=== PATIENT | male | born 2000 | race African-American/Black ===

== ENCOUNTER 2024-04-15 21:59 | Emergency (ER) | payer OTHER ==
[2024-04-15] MEDS ORDERED: ONDANSETRON 4 MG/2 ML VIAL ONE (22:37)
[2024-04-15] MEDS ORDERED: KETOROLAC 30 MG/ML INJ ONE (22:37)
[2024-04-15] MEDS ORDERED: FAMOTIDINE 20 MG/2 ML VIAL IV ONE (22:38)
[2024-04-15] MEDS ORDERED: MORPHINE 4 MG/ML SYR ONE (22:38)
[2024-04-15] MEDS ORDERED: NA CHLORIDE 0.9% 1,000 ML ONE (22:38)
[2024-04-15 22:54] LABS: Absolute Eosinophils 0.1 K/uL (0-0.5); Absolute Lymphocytes (CBC) 1.9 K/uL (0.7-4.9); Absolute Monocytes 0.5 K/uL (0.1-1.3); Absolute Neutrophil 2.3 K/uL (1.8-8.0); Basophils % 0.7 % (0-1.3); Eosinophils % 2.6 % (0-4.4); Hematocrit 46.7 % (39.6-49.0); Hemoglobin 15.8 g/dL (13.6-17.9); Lymphocytes % 39.2 % (15.3-44.8); MCH 31.3 pg (27.0-35.0); MCHC 33.9 g/dL (32.0-36.0); MCV 92.2 fL (80-100); MPV 8.6 fL (7.6-11.3); Monocytes % 9.7 % (3.3-12.3); Neutrophils % 47.8 % (41.7-73.7); Nucleated Red Blood Cells % 0.5 % (0-0); Platelets 216 thou/uL (152-406); RBC Red Blood Cell Count 5.06 M/uL (4.33-5.43); Red Cell Distribution Width 14.2 % (12.1-15.2)
[2024-04-15 22:56] LABS: Albumin 3.6 g/dL (3.4-5.0); Albumin/Globulin Ratio 0.9 (1.1-1.8); Anion Gap 8.7 mEq/L (5.0-15.0); Bilirubin Total 0.4 mg/dL (0.2-1.0); Globulin 3.8 g/dL (2.3-3.5); Potassium 3.7 mEq/L (3.5-5.1); Protein, Total 7.4 g/dL (6.4-8.2)
[2024-04-15 23:41] LABS: Specific Gravity 1.017 (1.005-1.030); Sqamous Epithelial None Seen /HPF (None Seen); Urine Bacteria <20 /HPF (<20); Urine Bilirubin NEGATIVE (Negative); Urine Blood Negative (Negative); Urine Clarity Clear (Clear); Urine Color Light-Yellow (Yellow); Urine Culture Reflex Order NOT NEEDED; Urine Glucose NEGATIVE (Negative); Urine Ketones NEGATIVE (Negative); Urine Microscopic Reflex YN ORDER UMIC; Urine Nitrite NEGATIVE (Negative); Urine Protein NEGATIVE (Negative); Urine RBC None Seen /HPF (None Seen); Urine Sperm Present (None Seen); Urine Urobilinogen Normal (Normal); Urine WBC <5 /HPF (<5)
--- NOTE | 2024-04-16 00:48 | RAD REPORT ---
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 COMPARISON: None. TECHNIQUE: CT of the abdomen and pelvis acquired following the intravenous administration of contrast . Axial, coronal and sagittal images are provided. The study was performed using dose reduction techniques including automated exposure control and/or adjustment of the MA and/or KV according to pa tient size, and/or iterative reconstruction techniques. FINDINGS: Lower thorax: No consolidation or pleural effusion. Partially visualized heart is normal in size. Liver: Diffuse hepatic hypoattenuation, most suggestive of diffuse steatosis. Right lobe of the liver measures 19 cm in CC dimension. Biliary tree: No intra- or extrahepatic bile duct dilation. Gallbladder: No calcified cholelithiasis or pericholecystic inflammation. Pancreas, spleen, adrenals, kidneys and ureters: No acute lesion. No nephrolithiasis or hydronephro sis. Bladder/reproductive organs: No urinary bladder or prostate gland lesion. Gastrointestinal tract: Lower esophagus/stomach/small bowel/colon: Stomach and portions of the small bowel, rectum, and colon are decompressed, with associated mural prominence, limiting evaluation, with nonspecific mild mural thickening which can be seen with inadequate distention. Intrinsic mural pathology not entirely excluded. No inflammation or obstruction. Small amount of fluid within the stomach. Moderate colonic stool. Appendix: Normal diameter gas-filled appendix. Peritoneum, mesentery and retroperitoneum: No free air, ascites or loculated fluid. Lymph nodes: No pathologic adenopathy based on size criteria. Vasculature: Aorta and branches: Aorta has a normal diameter. IVC and veins: IVC has a normal diameter. Subcentimeter calcified pelvic phleboliths. Bones: Degenerative changes, including multilevel spondylosis. Soft tissues: No acute abnormality. IMPRESSION: 1. Moderate colonic stool. 2. Normal appendix. No inflammation. Electronically signed by: Yomi Chew MD 04/16/2024 12:31 AM IMPREGNATOR AND DRIER HELPER RP Due to temporary technical issues with the PACS/Tirag[employer] reporting system, reports are being juanita d by the in-house radiologist without review as a courtesy to ensure prompt reporting the interpreting radiologist is fully responsible for the content of the report. Transcribed Date/Time: 04/16/2024 12:48 AM
--- NOTE | 2024-04-16 04:42 | EDPHYS ---
Physician Documentation [facility] Name: Rodney Elijah Age: 23 yrs Sex: Male : 2000 Arrival Date: 04/15/2024 Time: 21:59 Bed 20 Private MD: ED Physician Santiago Koehler HPI: 04/15 22:10 This 23 yrs old Black Male presents to ER via Unassigned with complaints of Upper sp4 abdominal pain . 04/16 21:59 Patient presents with EMS for complaint of acute upper abdominal pain associated with sp4 nausea vomiting and diarrhea. Patient reports he was not able to sleep secondary to pain.. Historical: - Allergies: 04/15 22:16 No Known Allergies; rg5 - PMHx: 22:16 None; rg5 - Immunization history:: Adult Immunizations not up to date. - Infectious Disease History:: Denies. - Social history:: Smoking status: Patient reports the use of cigarette tobacco products, smokes one-half pack cigarettes per day. - Family history:: not pertinent. ROS: 04/16 21:59 Constitutional: Negative for fever, chills, and weight loss, positive for abdominal sp4 pain , positive for nausea vomiting and diarrhea Eyes: Negative for injury, pain, redness, and discharge, All other systems are negative, Exam: 21:59 Constitutional: This is a well developed, well nourished patient who is awake, alert, sp4 and in no acute distress. Head/Face: Normocephalic, atraumatic. Eyes: Pupils equal round and reactive to light, extra-ocular motions intact. Lids and lashes normal. Conjunctiva and sclera are not injected. Cornea within normal limits. Periorbital areas with no swelling, redness, or edema. ENT: Nares patent. No nasal discharge, no septal abnormalities noted. Tympanic membranes are normal and external auditory canals are clear. Oropharynx with no redness, swelling, or masses, exudates, or evidence of obstruction, uvula midline. Mucous membranes moist. Neck: Trachea midline, no thyromegaly or masses palpated, and no cervical lymphadenopathy. Supple, full range of motion without nuchal rigidity, or vertebral point tenderness. Chest/axilla: Normal chest wall appearance and motion. Nontender with no deformity. No lesions are appreciated. Cardiovascular: Regular rate and rhythm with a normal S1 and S2. No gallops, murmurs, or rubs. Normal PMI, no JVD. No pulse deficits. Respiratory: Lungs have equal breath sounds bilaterally, clear to auscultation and percussion. No rales, rhonchi or wheezes noted. No increased work of breathing, no retractions or nasal flaring. Abdomen/GI: Soft, with normal bowel sounds. No distension or tympany. No guarding or rebound. Positive for upper abdominal tenderness. Back: No spinal tenderness. No costovertebral tenderness. Skin: Warm, dry with normal turgor. Normal color with no rashes, no lesions, and no evidence of cellulitis. MS/ Extremity: Pulses equal, no cyanosis. Neurovascular intact. Full, normal range of motion. Neuro: Awake and alert, GCS 15, oriented to person, place, time, and situation. Cranial nerves II-XII grossly intact. Motor strength 5/5 in all extremities. Sensory grossly intact. Psych: Awake, alert, with orientation to person, place and time. Behavior, mood, and affect are within normal limits Vital Signs: 04/15 22:13 BP 117 / 86; Pulse 75; Resp 17; Temp 98.2; Pulse Ox 100% on R/A; Weight 52.16 kg; rg5 Height 5 ft. 3 in. ; Pain 8/10; 22:17 BP 117 / 86; Pulse 75; Resp 17; Pain 8/10; rg5 23:12 BP 127 / 85; Pulse 89; Resp 17; Pulse Ox 99% on R/A; Pain 5/10; rg5 04/16 00:33 BP 99 / 58; Pulse 83; Resp 16; Temp 98(O); Pulse Ox 99% on R/A; Pain 3/10; rg5 01:29 BP 109 / 91; Pulse 87; Resp 17; Temp 98; Pulse Ox 96% on R/A; rg5 02:20 BP 110 / 77; Pulse 70; Resp 17; Temp 98(O); Pulse Ox 97% on R/A; rg5 03:10 BP 121 / 77; Pulse 78; Resp 16; Temp 98; Pulse Ox 97% on R/A; rg5 04:46 BP 105 / 63; Pulse 60; Resp 16; Temp 98(O); Pulse Ox 99% on R/A; Pain 0/10; rg5 04/15 22:13 Body Mass Index 20.37 (52.16 kg, 160.02 cm) rg5 04/15 22:13 Pain Scale: Adult rg5 22:17 Pain Scale: Adult rg5 23:12 Pain Scale: Adult rg5 04/16 00:33 Pain Scale: Adult rg5 04:46 Pain Scale: Adult rg5 MDM: 04/15 22:10 Medical Screening Exam initiated sp4 04/16 04:37 ED course: EXAM: CTABDOMEN AND PELVIS WITH CONTRAST DATE: 04/15/2024 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 COMPARISON: None. TECHNIQUE: CT of the abdomen and pelvis acquired following the intravenous administration of contrast. Axial, coronal and sagittal images are provided. The study was performed using dose reduction techniques including automated exposure control and/or adjustment of the MA and/or KV according to patient size, and/or iterative reconstruction techniques. FINDINGS: Lower thorax: No consolidation or pleural effusion. Partially visualized heart is normal in size. Liver: Diffuse hepatic hypoattenuation, most suggestive of diffuse steatosis. Right lobe of the liver measures 19 cm in CC dimension. Biliary tree: No intra- or extrahepatic bile duct dilation. Gallbladder: No calcified cholelithiasis or pericholecystic inflammation. Pancreas, spleen, adrenals, kidneys and ureters: No acute lesion. No nephrolithiasis or hydronephrosis. Bladder/reproductive organs: No urinary bladder or prostate gland lesion. Gastrointestinal tract: Lower esophagus/stomach/small bowel/colon: Stomach and portions of the small bowel, rectum, and colon are decompressed, with associated mural prominence, limiting evaluation, with nonspecific mild mural thickening which can be seen with inadequate distention. Intrinsic mural pathology not entirely excluded. No inflammation or obstruction. Small amount of fluid within the stomach. Moderate colonic stool. Appendix: Normal diameter gas-filled appendix. Peritoneum, mesentery and retroperitoneum: No free air, ascites or loculated fluid. Lymph nodes: No pathologic adenopathy based on size criteria. Vasculature: Aorta and branches: Aorta has a normal diameter. IVC and veins: IVC has a normal diameter. Subcentimeter calcified pelvic phleboliths. Bones: Degenerative changes, including multilevel spondylosis. Soft tissues: No acute abnormality. IMPRESSION: 1. Moderate colonic stool. 2. Normal appendix. No inflammation.. 21:59 Differential diagnosis: appendicitis, cholecystitis, Cholelithiasis, gastritis, sp4 Hepatitis. Data reviewed: vital signs, nurses notes, EMS record, old medical records, lab test result(s), radiologic studies, CT scan. ED course: Patient is markedly improved, stable for discharge home.. 22:01 ED course: Advised clear liquid diet for 24 hours.. 4 04/15 22:10 Order name: CBC with Diff; Complete Time: : sp4 04/15 22:10 Order name: CMP; Complete Time: : sp4 04/15 22:10 Order name: Lipase; Complete Time: : 4 04/15 22:10 Order name: Urinalysis w/ reflexes; Complete Time: : 4 04/15 22:10 Order name: CT Abd/Pelvis - IV Contrast Only 4 04/15 22:10 Order name: IV Saline Lock; Complete Time: 22:26 4 04/15 22:10 Order name: Labs collected and sent; Complete Time: : sp4 Administered Medications: 04/15 20:20 Drug: Ondansetron IVP 4 mg IVP once; over 2 minutes Route: IVP; Site: right antecubital;rg5 23:10 Follow up: Response: No adverse reaction rg5 22:20 Drug: Famotidine IVP 20 mg IVP once; dilute with 10 mL 0.9% NaCl; give over 2 minutes rg5 Route: IVP; Site: right antecubital; 23:10 Follow up: Response: No adverse reaction rg5 22:20 Drug: TORadol - Ketorolac IVP 15 mg IVP once Route: IVP; Site: right antecubital; rg5 23:10 Follow up: Response: No adverse reaction; Pain is decreased rg5 23:11 Follow up: Response: No adverse reaction; Pain is decreased rg5 22:20 Drug: morphine IVP or IV 4 mg IVP once over 4 mins Route: IVP; Infused Over: 4 mins; rg5 Site: right antecubital; 23:11 Follow up: Response: No adverse reaction; Pain is decreased rg5 22:47 Drug: NS 0.9% IV 1000 ml IV at 1 bolus Per protocol; to be given as a bolus over 60 rg5 minutes Route: IV; Rate: 1 bolus; Site: right antecubital; 23:00 Follow up: IV Status: Completed infusion; IV Intake: 1000ml rg5 Disposition Summary: 04/16/24 04:42 Discharge Ordered Notes: Location: Home sp4 Problem: new sp4 Symptoms: have improved sp4 Condition: Stable sp4 Diagnosis - Acute gastroenteritis sp4 Followup: sp4 - With: Private Physician - When: 7 - 10 days - Reason: Recheck today's complaints Discharge Instructions: - Discharge Summary Sheet sp4 - Clear Liquid Diet, Adult, [id number] sp4 Forms: - Patient Portal Instructions sp4 Prescriptions: - Lomotil 2.5-0.025 mg Oral tablet - take 1 tablet ORAL route every 6 hours As needed PRN diarrhea; 20 tablet; sp4 Refills: 0, Product Selection Permitted - dicyclomine 20 mg Oral tablet - take 1 tablet ORAL route every 8 hours PRN abdominal pain; 30 tablet; Refills: sp4 0, Product Selection Permitted - ondansetron 8 mg Oral Tablet,disintegrating - take 1 tablet ORAL route every 8 hours PRN nausea; 30 tablet; Refills: 0, sp4 Product Selection Permitted Signatures: Dispatcher [employer] EDMS Santiago Koehler MD MD sp4 Mark Anderson RN RN rg5 Corrections: (The following items were deleted from the chart) 22:11 22:11 CBC+H.LAB.BRZ ordered. EDMS EDMS 22:11 22:11 COMPREHENSIVE METABOLIC PANEL+C.LAB.BRZ ordered. EDMS EDMS 22:11 22:11 LIPASE+C.LAB.BRZ ordered. EDMS EDMS 22:11 22:11 Urinalysis+U.LAB.BRZ ordered. EDMS EDMS 22:11 22:11 Abdomen Pelvis W Con+CT.RAD.BRZ ordered. EDMS EDMS
--- NOTE | 2024-04-16 04:42 | ER ---
Nurse's Notes [facility] Name: Rodney Elijah Age: 23 yrs Sex: Male : 2000 Arrival Date: 04/15/2024 Time: 21:59 Bed 20 Private MD: Diagnosis: Acute gastroenteritis Presentation: 04/15 22:13 Chief complaint: EMS states: pain in the abdomen starrted around 3pm today, vomited rg5 once and still in pain. Coronavirus screen: Client denies travel out of the [place] in the last 14 days. Ebola Screen: Patient negative for fever greater than or equal to 101.5 degrees Fahrenheit, and additional compatible Ebola Virus Disease symptoms. Initial Sepsis Screen: Does the patient meet any 2 criteria? No. Patient's initial sepsis screen is negative. Does the patient have a suspected source of infection? No. Patient's initial sepsis screen is negative. Risk Assessment: Do you want to hurt yourself or someone else?. Onset of symptoms was April 15, 2024. 22:13 Method Of Arrival: EMS: [facility] rg5 22:13 Acuity: OLVIN 3 rg5 Triage Assessment: 22:16 General: Appears in no apparent distress. Behavior is calm, cooperative. Pain: rg5 Complains of pain in abdomen Pain currently is 8 out of 10 on a pain scale. Quality of pain is described as aching. Historical: - Allergies: 22:16 No Known Allergies; rg5 - PMHx: 22:16 None; rg5 - Immunization history:: Adult Immunizations not up to date. - Infectious Disease History:: Denies. - Social history:: Smoking status: Patient reports the use of cigarette tobacco products, smokes one-half pack cigarettes per day. - Family history:: not pertinent. Screenin:48 [facility] ED Fall Risk Assessment (Adult) History of falling in the last 3 months, rg5 including since admission No falls in past 3 months (0 pts) Confusion or Disorientation No (0 pts) Intoxicated or Sedated No (0 pts) Impaired Gait No (0 pts) Mobility Assist Device Used No (0 pt) Altered Elimination No (0 pt) Score/Fall Risk Level 0 - 2 = Low Risk Hourly rounding (assess needs \T\ fall precautionary measures) done. Abuse screen: Denies threats or abuse. Nutritional screening: No deficits noted. Tuberculosis screening: No symptoms or risk factors identified. Assessment: 22:18 Reassessment: see triage assessment. rg5 23:12 Reassessment: Patient and/or family updated on plan of care and expected duration. Pain rg5 level reassessed. Patient is alert, oriented x 3, equal unlabored respirations, skin warm/dry/pink. Reassessment: Patient states symptoms have improved. General: Appears in no apparent distress. Behavior is calm. Pain: Complains of pain in abdomen Pain currently is 6 out of 10 on a pain scale. Quality of pain is described as aching. Respiratory: Airway is patent Trachea midline Respiratory pattern is regular, symmetrical. GI: Abdomen is flat, Reports nausea, vomiting. : No signs and/or symptoms were reported regarding the genitourinary system. EENT: No deficits noted. Derm: Skin is intact, Skin is dry, Skin is normal. Musculoskeletal: Circulation, motion, and sensation intact. Range of motion: intact in all extremities. 04/16 00:32 Reassessment: No changes from previously documented assessment. Patient and/or family rg5 updated on plan of care and expected duration. Pain level reassessed. Patient is alert, oriented x 3, equal unlabored respirations, skin warm/dry/pink. 00:33 Reassessment: Patient and/or family updated on plan of care and expected duration. Pain rg5 level reassessed. Patient is alert, oriented x 3, equal unlabored respirations, skin warm/dry/pink. Patient states feeling better. Patient states symptoms have improved. 01:29 Reassessment: Patient and/or family updated on plan of care and expected duration. Pain rg5 level reassessed. Patient is alert, oriented x 3, equal unlabored respirations, skin warm/dry/pink. Patient states symptoms have improved. 02:15 Reassessment: Patient and/or family updated on plan of care and expected duration. Pain rg5 level reassessed. Patient is alert, oriented x 3, equal unlabored respirations, skin warm/dry/pink. 03:07 Reassessment: No changes from previously documented assessment. Patient and/or family rg5 updated on plan of care and expected duration. Pain level reassessed. Patient is alert, oriented x 3, equal unlabored respirations, skin warm/dry/pink. Vital Signs: 04/15 22:13 BP 117 / 86; Pulse 75; Resp 17; Temp 98.2; Pulse Ox 100% on R/A; Weight 52.16 kg; rg5 Height 5 ft. 3 in. ; Pain 8/10; 22:17 BP 117 / 86; Pulse 75; Resp 17; Pain 8/10; rg5 23:12 BP 127 / 85; Pulse 89; Resp 17; Pulse Ox 99% on R/A; Pain 5/10; rg5 04/16 00:33 BP 99 / 58; Pulse 83; Resp 16; Temp 98(O); Pulse Ox 99% on R/A; Pain 3/10; rg5 01:29 BP 109 / 91; Pulse 87; Resp 17; Temp 98; Pulse Ox 96% on R/A; rg5 02:20 BP 110 / 77; Pulse 70; Resp 17; Temp 98(O); Pulse Ox 97% on R/A; rg5 03:10 BP 121 / 77; Pulse 78; Resp 16; Temp 98; Pulse Ox 97% on R/A; rg5 04:46 BP 105 / 63; Pulse 60; Resp 16; Temp 98(O); Pulse Ox 99% on R/A; Pain 0/10; rg5 04/15 22:13 Body Mass Index 20.37 (52.16 kg, 160.02 cm) rg5 04/15 22:13 Pain Scale: Adult rg5 22:17 Pain Scale: Adult rg5 23:12 Pain Scale: Adult rg5 04/16 00:33 Pain Scale: Adult rg5 04:46 Pain Scale: Adult rg5 ED Course: 04/15 22:07 Patient arrived in ED. rv1 22:08 Santiago Koehler MD is Attending Physician. sp4 22:13 Mark Anderson RN is Primary Nurse. rg5 22:16 Triage completed. rg5 22:16 Arm band placed on right wrist. rg5 22:48 Patient has correct armband on for positive identification. Placed in gown. Bed in low rg5 position. Call light in reach. Side rails up X 1. Door closed. Noise minimized. Warm blanket given. 22:48 No provider procedures requiring assistance completed. Inserted saline lock: 18 gauge rg5 in right antecubital area, using aseptic technique. Blood collected. Flushed with 10 mL NS. 23:59 CT Abd/Pelvis - IV Contrast Only In Process Unspecified. EDMS 04/16 04:47 Provided Education on: post er care done. rg5 04:47 IV discontinued, bleeding controlled, No redness/swelling at site. Pressure dressing rg5 applied. Administered Medications: 04/15 20:20 Drug: Ondansetron IVP 4 mg IVP once; over 2 minutes Route: IVP; Site: right antecubital;rg5 23:10 Follow up: Response: No adverse reaction rg5 22:20 Drug: Famotidine IVP 20 mg IVP once; dilute with 10 mL 0.9% NaCl; give over 2 minutes rg5 Route: IVP; Site: right antecubital; 23:10 Follow up: Response: No adverse reaction rg5 22:20 Drug: TORadol - Ketorolac IVP 15 mg IVP once Route: IVP; Site: right antecubital; rg5 23:10 Follow up: Response: No adverse reaction; Pain is decreased rg5 23:11 Follow up: Response: No adverse reaction; Pain is decreased rg5 22:20 Drug: morphine IVP or IV 4 mg IVP once over 4 mins Route: IVP; Infused Over: 4 mins; rg5 Site: right antecubital; 23:11 Follow up: Response: No adverse reaction; Pain is decreased rg5 22:47 Drug: NS 0.9% IV 1000 ml IV at 1 bolus Per protocol; to be given as a bolus over 60 rg5 minutes Route: IV; Rate: 1 bolus; Site: right antecubital; 23:00 Follow up: IV Status: Completed infusion; IV Intake: 1000ml rg5 Medication: 23:12 VIS not applicable for this client. rg5 Intake: 23:00 IV: 1000ml; Total: 1000ml. rg5 Outcome: 04/16 04:42 Discharge ordered by . sp4 04:50 Discharged to home ambulatory, rg5 04:50 Condition: stable 04:50 Discharge instructions given to patient, family, Instructed on discharge instructions, follow up and referral plans. Demonstrated understanding of instructions, follow-up care, medications, Prescriptions given X 3, 04:52 Patient left the ED. rg5 Signatures: Dispatcher [employer] EDRI [place] rv1 Santiago Koehler MD MD sp4 Mark Anderson, RN RN rg5
[2024-04-16 05:33] VITALS: TEMP 98
[2024-04-16 05:38] VITALS: BP 105/63; O2SAT 99
== END 2024-04-16 04:52 | disposition home or self-care (01) ==
LOC: ER 21:59
DX: K52.9 Noninfective gastroenteritis and colitis, unspecified (principal); F17.210 Nicotine dependence, cigarettes, uncomplicated
CPT/HCPCS: 85025; 81001; 36415; 83690; 80053; 74177; 96375; 96374; 99284; Q9967; J2405; J7030

== ENCOUNTER 2024-12-29 22:31 | Emergency (ER) | payer OTHER ==
[2024-12-29] MEDS ORDERED: ACETAMINOPHEN 500 MG TAB ONE (22:46)
[2024-12-29] MEDS ORDERED: DIPHENOX/ATROP SULF 1 TAB PO ONE (22:47)
[2024-12-29] MEDS ORDERED: ONDANSETRON 4 MG (ODT) TAB ONE (22:47)
[2024-12-29] MEDS ORDERED: IBUPROFEN 400 MG TAB ONE (22:47)
--- NOTE | 2024-12-29 22:54 | ER ---
Nurse's Notes [facility] Name: Rodney Elijah Age: 24 yrs Sex: Male : 2000 Arrival Date: 12/29/2024 Time: 22:31 Bed 6 Private MD: Diagnosis: Myalgia;Subacute onset body aches, noncardiac chest pain Presentation: 12/29 22:33 Chief complaint: Patient states: headache, body aches, diarrhea 1 week. Coronavirus lg3 screen: Client denies travel out of the [place] in the last 14 days. At this time, the client does not indicate any symptoms associated with coronavirus-19. Ebola Screen: No symptoms or risks identified at this time. Initial Sepsis Screen: Does the patient meet any 2 criteria? No. Patient's initial sepsis screen is negative. Does the patient have a suspected source of infection? No. Patient's initial sepsis screen is negative. Risk Assessment: Do you want to hurt yourself or someone else? Patient reports no desire to harm self or others. Onset of symptoms is unknown. 22:33 Method Of Arrival: EMS: [facility] lg3 22:33 Acuity: OLVIN 4 lg3 Triage Assessment: 22:35 General: Appears in no apparent distress. comfortable, Behavior is calm, cooperative. lg3 Pain: Complains of pain in all over Pain currently is 10 out of 10 on a pain scale. EENT: No deficits noted. No signs and/or symptoms were reported regarding the EENT system. Neuro: [place]dermott Agitation-Sedation Scale (RASS): +1 Restless Level of Consciousness is awake, alert, obeys commands, Oriented to person, place, time, situation, Reports headache. Cardiovascular: No deficits noted. Reports chest pressure Denies chest pain, Heart tones S1 S2 present Capillary refill < 3 seconds Clubbing of nail beds is absent JVD is absent Patient's skin is warm and dry. Respiratory: No deficits noted. Airway is patent Respiratory effort is even, unlabored, Respiratory pattern is regular, symmetrical. GI: No deficits noted. Abdomen is flat, non-distended, Reports diarrhea. : No signs and/or symptoms were reported regarding the genitourinary system. Derm: No deficits noted. No signs and/or symptoms reported regarding the dermatologic system. Skin is intact, is healthy with good turgor, Skin is dry, Skin is normal, Skin temperature is warm. Musculoskeletal: No deficits noted. Circulation, motion, and sensation intact. Range of motion: intact in all extremities, Reports pain in all over. Historical: - Allergies: 22:35 No Known Allergies; lg3 - Home Meds: 22:35 None [Active]; lg3 - PMHx: 22:35 Asthma; lg3 - PSHx: 22:35 None; lg3 - Immunization history:: Adult Immunizations up to date. - Infectious Disease History:: Denies. - Social history:: Smoking status: Patient reports the use of cigarette tobacco products, denies chronic smoking, but will smoke occasionally, Reported history of juuling and/or vaping. Patient uses alcohol, weekly. Patient/guardian denies using street drugs. - Family history:: not pertinent. Screenin:43 [facility] ED Fall Risk Assessment (Adult) History of falling in the last 3 months, lg3 including since admission No falls in past 3 months (0 pts) Confusion or Disorientation No (0 pts) Intoxicated or Sedated No (0 pts) Impaired Gait No (0 pts) Mobility Assist Device Used No (0 pt) Altered Elimination No (0 pt) Score/Fall Risk Level 0 - 2 = Low Risk Oriented to surroundings, Maintained a safe environment, Educated pt \T\ family on fall prevention, incl call for assistance when getting out of bed, Assessed \T\ reinforced patient's understanding of fall precautions. Abuse screen: Denies threats or abuse. Denies injuries from another. Nutritional screening: No deficits noted. Tuberculosis screening: No symptoms or risk factors identified. Assessment: 22:43 General: see triage assessment. lg3 23:05 General: PT refusing DC at this time. Provider and charge nurse notified. lg3 23:14 General: charge nurse at bedside. PT still refusing DC and requesting admission at this lg3 time. Provider notified . 23:30 Reassessment: Patient appears in no apparent distress at this time. No changes from lg3 previously documented assessment. Patient and/or family updated on plan of care and expected duration. Pain level reassessed. Patient is alert, oriented x 3, equal unlabored respirations, skin warm/dry/pink. 23:33 General: Charge nurse at bedside to DC PT. lg3 Vital Signs: 22:33 BP 127 / 86; Pulse 79; Resp 16 S; Temp 97.8(O); Pulse Ox 99% on R/A; Weight 52.16 kg lg3 (R); Height 5 ft. 3 in. (R); Pain 10/10; 23:34 BP 121 / 84; Pulse 71; Resp 17 S; Temp 97.6(O); Pulse Ox 100% on R/A; lg3 22:33 Body Mass Index 20.37 (52.16 kg, 160.02 cm) lg3 22:33 Pain Scale: Adult lg3 [place] Coma Score: 12/30 03:45 Eye Response: spontaneous(4). Motor Response: obeys commands(6). Verbal Response: sp4 oriented(5). Total: 15. ED Course: 12/29 22:33 Patient arrived in ED. lg3 22:33 Jolene Coyle RN is Primary Nurse. lg3 22:34 Santiago Koehler MD is Attending Physician. sp4 22:35 Triage completed. lg3 22:35 Arm band placed on right wrist. lg3 22:43 Patient has correct armband on for positive identification. Placed in gown. Bed in low lg3 position. Call light in reach. Side rails up X 1. Client placed on continuous cardiac and pulse oximetry monitoring. NIBP monitoring applied. Door closed. Noise minimized. Warm blanket given. Pillow given. 23:02 EKG done, by range technician. reviewed by Santiago Koehlre MD. ts3 23:34 No provider procedures requiring assistance completed. Patient did not have IV access lg3 during this emergency room visit. Administered Medications: 22:52 Drug: Ibuprofen PO 800 mg PO once Route: PO; lg3 23:34 Follow up: Response: No adverse reaction lg3 22:52 Drug: Ondansetron PO 4 mg PO once Route: PO; lg3 23:34 Follow up: Response: No adverse reaction lg3 22:52 Drug: Diphenoxylate-Atropine PO 2 tabs PO once Route: PO; lg3 23:34 Follow up: Response: No adverse reaction lg3 22:52 Drug: Acetaminophen PO 1000 mg PO once Route: PO; lg3 23:34 Follow up: Response: No adverse reaction lg3 Medication: 22:43 VIS not applicable for this client. lg3 Outcome: 22:53 Discharge ordered by . sp4 23:34 Discharged to home ambulatory, lg3 23:34 Condition: stable 23:34 Discharge instructions given to patient, Instructed on discharge instructions, follow up and referral plans. Demonstrated understanding of instructions, follow-up care, 23:35 Patient left the ED. lg3 Signatures: Jolene Coyle RN RN lg3 Santiago Koehler MD MD sp4 Caitlyn Toure ts3 Corrections: (The following items were deleted from the chart) 23:31 23:15 General: PT refusing C at this time. Provider and charge nurse notified. lg3 lg3 23:32 23:05 General: PT refusing C at this time. Provider and charge nurse notified. lg3 lg3
--- NOTE | 2024-12-29 22:54 | EDPHYS ---
[facility] Documentation [facility] Age: 24 yrs Sex: Male : 2000 Arrival Date: 12/29/2024 Time: 22:31 Bed 6 Private MD: ED Physician Santiago Koehler HPI: 12/29 22:36 This 24 yrs old Black Male presents to ER via EMS with complaints of body aches, chest sp4 pain , diarrhea . 12/30 03:46 Patient presents with EMS for complaint of 1 week of body aches chest pain sore throat sp4 and diarrhea.. Historical: - Allergies: 12/29 22:35 No Known Allergies; lg3 - Home Meds: 22:35 None [Active]; lg3 - PMHx: 22:35 Asthma; lg3 - PSHx: 22:35 None; lg3 - Immunization history:: Adult Immunizations up to date. - Infectious Disease History:: Denies. - Social history:: Smoking status: Patient reports the use of cigarette tobacco products, denies chronic smoking, but will smoke occasionally, Reported history of juuling and/or vaping. Patient uses alcohol, weekly. Patient/guardian denies using street drugs. - Family history:: not pertinent. ROS: 12/30 03:46 Constitutional: Negative for fever, chills, and weight loss, positive body aches sp4 positive chest pain positive sore throat positive diarrhea All other systems are negative, Exam: 03:45 Constitutional: This is a well developed, well nourished patient who is awake, alert, sp4 and in no acute distress. Head/Face: Normocephalic, atraumatic. Eyes: Pupils equal round and reactive to light, extra-ocular motions intact. Lids and lashes normal. Conjunctiva and sclera are not injected. Cornea within normal limits. Periorbital areas with no swelling, redness, or edema. ENT: Nares patent. No nasal discharge, no septal abnormalities noted. Tympanic membranes are normal and external auditory canals are clear. Oropharynx with no redness, swelling, or masses, exudates, or evidence of obstruction, uvula midline. Mucous membranes moist. Neck: Trachea midline, no thyromegaly or masses palpated, and no cervical lymphadenopathy. Supple, full range of motion without nuchal rigidity, or vertebral point tenderness. Chest/axilla: Normal chest wall appearance and motion. Nontender with no deformity. No lesions are appreciated. Cardiovascular: Regular rate and rhythm with a normal S1 and S2. No gallops, murmurs, or rubs. No pulse deficits. Respiratory: Lungs have equal breath sounds bilaterally, clear to auscultation and percussion. No rales, rhonchi or wheezes noted. No increased work of breathing, no retractions or nasal flaring. Abdomen/GI: Soft, with normal bowel sounds. No distension or tympany. No guarding or rebound. No evidence of tenderness throughout. Back: No spinal tenderness. No costovertebral tenderness. Skin: Warm, dry with normal turgor. Normal color with no rashes, no lesions, and no evidence of cellulitis. MS/ Extremity: Pulses equal, no cyanosis. Neurovascular intact. Full, normal range of motion. Neuro: Awake and alert, GCS 15, oriented to person, place, time, and situation. Cranial nerves II-XII grossly intact. Motor strength 5/5 in all extremities. Sensory grossly intact. Psych: Awake, alert, with orientation to person, place and time. Behavior, mood, and affect are within normal limits 03:45 ECG was reviewed by the Attending Physician. EKG at 2300 normal sinus rhythm with sinus arrhythmia rate 67, Vital Signs: 12/29 22:33 BP 127 / 86; Pulse 79; Resp 16 S; Temp 97.8(O); Pulse Ox 99% on R/A; Weight 52.16 kg lg3 (R); Height 5 ft. 3 in. (R); Pain 10/10; 23:34 BP 121 / 84; Pulse 71; Resp 17 S; Temp 97.6(O); Pulse Ox 100% on R/A; lg3 22:33 Body Mass Index 20.37 (52.16 kg, 160.02 cm) lg3 22:33 Pain Scale: Adult lg3 [place] Coma Score: 12/30 03:45 Eye Response: spontaneous(4). Motor Response: obeys commands(6). Verbal Response: sp4 oriented(5). Total: 15. MDM: 12/29 22:53 Medical Screening Exam initiated sp4 12/30 03:46 Differential diagnosis: acute pericarditis, costochondritis, esophagitis, gastritis, sp4 pleurisy. Data reviewed: vital signs, nurses notes, EMS record, old medical records, EKG. ED course: Exam normal, EKG is normal, patient has completely normal vital signs. Patient stable for discharge without additional workup. Advised [id number] ibuprofen for sore throat.. 12/29 22:37 Order name: EKG; Complete Time: 22:37 sp4 EC/12 23:00 Rate is 67 beats/min. Rhythm is regular, Normal Sinus Rhythm. QRS [place] is Normal. MA sp4 interval is normal. QRS interval is normal. QT interval is normal. No Q waves. T waves are Normal. No ST changes noted. Clinical impression: Normal ECG. Interpreted by me. Reviewed by me. Administered Medications: 22:52 Drug: Ibuprofen PO 800 mg PO once Route: PO; lg3 23:34 Follow up: Response: No adverse reaction lg3 22:52 Drug: Ondansetron PO 4 mg PO once Route: PO; lg3 23:34 Follow up: Response: No adverse reaction lg3 22:52 Drug: Diphenoxylate-Atropine PO 2 tabs PO once Route: PO; lg3 23:34 Follow up: Response: No adverse reaction lg3 22:52 Drug: Acetaminophen PO 1000 mg PO once Route: PO; lg3 23:34 Follow up: Response: No adverse reaction lg3 Disposition: 12/30 03:48 Chart complete. sp4 Disposition Summary: 12/29/24 22:53 Discharge Ordered Notes: Location: Home sp4 Problem: new sp4 Symptoms: have improved sp4 Condition: Stable sp4 Diagnosis - Myalgia sp4 - Subacute onset body aches, noncardiac chest pain sp4 Followup: sp4 - With: Private Physician - When: As needed - Reason: Recheck today's complaints Discharge Instructions: - Discharge Summary Sheet sp4 - Muscle Pain, Adult sp4 Forms: - Patient Portal Instructions sp4 Signatures: Jolene Coyle RN RN lg3 Santiago Koehler MD MD sp4
[2024-12-29 23:50] VITALS: BP 121/84; TEMP 97.6; O2SAT 100
== END 2024-12-29 23:35 | disposition home or self-care (01) ==
LOC: ER 22:31
DX: M79.10 Myalgia, unspecified site (principal); R07.89 Other chest pain; R07.0 Pain in throat; F17.210 Nicotine dependence, cigarettes, uncomplicated
CPT/HCPCS: 93005; 99284; Q0162